=== PATIENT | male | born 1970 | race Caucasian/White ===

== ENCOUNTER 2020-11-28 15:31 | Inpatient (IN) ==
[2020-11-28] MEDS ORDERED: Dexamethasone 4 MG/ML VIAL IVP ONE (16:16)
[2020-11-28 17:13] LABS: Basophils % 0.3 %; Hematocrit 47.2 % (37.5-50.1); Hemoglobin 15.9 g/dL (12.9-16.9); Immature Granulocytes % 1.1 % (0-4); Lymphocytes # 0.6 K/mcL (0.6-4.6); Lymphocytes % 5.5 %; Mean Corpuscular HGB Conc 33.7 g/dL (31.6-35.5); Mean Corpuscular Hemoglobin 30.9 pg (28.0-33.3); Mean Corpuscular Volume 91.8 fL (83.0-100.0); Mean Platelet Volume 10.2 fL (9.4-12.4); Monocytes # 0.4 K/mcL (0.0-1.3); Monocytes % 3.7 %; Neutrophils # 9.6 K/mcL (1.6-8.9); Platelet Count 250 K/mcL (140-400); Red Blood Count 5.14 M/mcL (4.19-5.50); Red Cell Distribution Width 13.6 % (11.5-14.5); Segmented Neutrophils % 89.4 %; White Blood Count 10.7 K/mcL (4.3-11.1)
[2020-11-28 17:14] LABS: VBG HCO3 25 mEq/L (21-27); VBG PCO2 42 mmHg (41-51); VBG PH 7.38 pH Units (7.32-7.42); VBG PO2 50 mmHg (25-50)
[2020-11-28 17:49] LABS: BUN/Creatinine Ratio 15 (6-26); Blood Urea Nitrogen 14 mg/dL (6-20); Calcium 9.2 mg/dL (8.6-10.3); Carbon Dioxide 23 mEq/L (23-29); Chloride 105 mEq/L (98-107); Glucose 114 mg/dL (70-105); Osmolality,Calculated 287 (280-300); Sodium 138 mEq/L (136-145); Troponin I < 0.03 ng/mL (< 0.04); eGFR For African Americans > 60 (> 60); eGFR For Non-African Americans > 60 (> 60)
[2020-11-28] MEDS ORDERED: Azithromycin 500 MG in D5% in Water 250 ML IVPB ONE (18:52)
[2020-11-28] MEDS ORDERED: Naloxone 0.4 MG/ML INJ IVP PRN (21:42)
[2020-11-28] MEDS ORDERED: Ondansetron ODT 4 MG TAB.RAPDIS SL PRN (21:42)
[2020-11-28] MEDS: Doxycycline 100 MG in 0.9 % Sodium Chloride Mini Bag 100 ML IVPB SCH (23:10)
[2020-11-28] MEDS ORDERED: Famotidine 20 MG/2 ML VIAL IVP ONE (23:58)
[2020-11-28] MEDS ORDERED: GI Cocktail 40 ML EACH PO ONE (23:58)
[2020-11-29] MEDS: Acetaminophen 325 MG TABLET PO PRN ×4 (00:09→21:11)
[2020-11-29] MEDS: Melatonin 3 MG TABLET PO PRN ×2 (01:44→21:12)
[2020-11-29 05:54] LABS: Basophils % 0.3 %; Hematocrit 46.8 % (37.5-50.1); Hemoglobin 15.4 g/dL (12.9-16.9); Immature Granulocytes % 1.1 % (0-4); Lymphocytes # 0.8 K/mcL (0.6-4.6); Lymphocytes % 7.5 %; Mean Corpuscular HGB Conc 32.9 g/dL (31.6-35.5); Mean Corpuscular Hemoglobin 30.7 pg (28.0-33.3); Mean Corpuscular Volume 93.2 fL (83.0-100.0); Mean Platelet Volume 10.3 fL (9.4-12.4); Monocytes # 0.3 K/mcL (0.0-1.3); Monocytes % 3.2 %; Neutrophils # 9.2 K/mcL (1.6-8.9); Platelet Count 272 K/mcL (140-400); Red Blood Count 5.02 M/mcL (4.19-5.50); Red Cell Distribution Width 13.7 % (11.5-14.5); Segmented Neutrophils % 87.9 %; White Blood Count 10.5 K/mcL (4.3-11.1)
[2020-11-29] MEDS: *HR* Enoxaparin 40 MG/0.4 ML SYRINGE SQ SCH (05:55)
[2020-11-29 07:04] LABS: BUN/Creatinine Ratio 16 (6-26); Blood Urea Nitrogen 15 mg/dL (6-20); Carbon Dioxide 23 mEq/L (23-29); Chloride 104 mEq/L (98-107); Glucose 114 mg/dL (70-105); Osmolality,Calculated 288 (280-300); Potassium 4.4 mEq/L (3.5-5.1); Sodium 138 mEq/L (136-145); eGFR For African Americans > 60 (> 60); eGFR For Non-African Americans > 60 (> 60)
[2020-11-29] MEDS: Dexamethasone 4 MG/ML VIAL IVP SCH (08:16)
[2020-11-29] MEDS: Aspirin Enteric Coated 325 MG Tablet PO SCH (08:17)
[2020-11-29] MEDS: amLODIPine 5 MG TABLET PO SCH (08:17)
[2020-11-29] MEDS: Loratadine 10 MG TABLET PO SCH (08:17)
[2020-11-29] MEDS: Doxycycline 100 MG in 0.9 % Sodium Chloride Mini Bag 100 ML IVPB SCH ×2 (11:30→22:23)
[2020-11-29] MEDS: Ipratropium 1 PUFF INHALER IH SCH ×4 (11:37→23:46)
[2020-11-29] MEDS: Furosemide 40 MG/4 ML VIAL IVP SCH ×2 (12:54→20:00)
[2020-11-30] MEDS: Ipratropium 1 PUFF INHALER IH SCH ×6 (03:48→23:07)
[2020-11-30] MEDS: *HR* Enoxaparin 40 MG/0.4 ML SYRINGE SQ SCH (04:51)
[2020-11-30] MEDS: Acetaminophen 325 MG TABLET PO PRN ×3 (04:51→20:22)
[2020-11-30] MEDS: Aspirin Enteric Coated 325 MG Tablet PO SCH (08:43)
[2020-11-30] MEDS: Dexamethasone 4 MG/ML VIAL IVP SCH (08:44)
[2020-11-30] MEDS: Furosemide 40 MG/4 ML VIAL IVP SCH ×2 (08:44→20:22)
[2020-11-30] MEDS: amLODIPine 5 MG TABLET PO SCH (08:44)
[2020-11-30] MEDS: Loratadine 10 MG TABLET PO SCH (08:45)
[2020-11-30] MEDS: Doxycycline 100 MG in 0.9 % Sodium Chloride Mini Bag 100 ML IVPB SCH ×2 (10:56→23:36)
[2020-11-30 11:45] LABS: Basophils % 0.1 %; Hemoglobin 15.6 g/dL (12.9-16.9); Immature Granulocytes % 0.6 % (0-4); Lymphocytes % 5.4 %; Mean Corpuscular HGB Conc 33.2 g/dL (31.6-35.5); Mean Corpuscular Hemoglobin 31.1 pg (28.0-33.3); Mean Corpuscular Volume 93.6 fL (83.0-100.0); Mean Platelet Volume 10.2 fL (9.4-12.4); Monocytes % 5.7 %; Neutrophils # 15.8 K/mcL (1.6-8.9); Platelet Count 312 K/mcL (140-400); Red Blood Count 5.02 M/mcL (4.19-5.50); Red Cell Distribution Width 13.7 % (11.5-14.5); Segmented Neutrophils % 88.2 %
[2020-11-30 11:46] LABS: White Blood Count 17.9 K/mcL (4.3-11.1)
[2020-11-30 11:50] LABS: D-Dimer 847 ng/mLFEU (0-500)
[2020-11-30 11:52] LABS: Fibrinogen 740 mg/dL (169-393)
[2020-11-30 11:59] LABS: Blood Urea Nitrogen 24 mg/dL (6-20); Carbon Dioxide 23 mEq/L (23-29); Chloride 101 mEq/L (98-107); Potassium 3.9 mEq/L (3.5-5.1); Sodium 135 mEq/L (136-145)
[2020-11-30 12:00] LABS: BUN/Creatinine Ratio 23 (6-26); Calcium 8.9 mg/dL (8.6-10.3); Glucose 123 mg/dL (70-105); Magnesium 1.9 mg/dL (1.6-2.6); Osmolality,Calculated 285 (280-300); eGFR For African Americans > 60 (> 60); eGFR For Non-African Americans > 60 (> 60)
[2020-11-30] MEDS ORDERED: *HR* Heparin 5,000 UNIT/ML VIAL IVP ONE (12:38)
[2020-11-30] MEDS ORDERED: *HR* Heparin 5,000 UNIT/ML VIAL IVP PRN ×2 (12:38)
[2020-11-30] MEDS ORDERED: Heparin 25,000UNIT/250ML 1/2NS 25,000 UNIT/250 ML IV.SOLN IVC SCH (12:45)
[2020-11-30 13:24] LABS: Hematocrit 46.5 % (37.5-50.1); Hemoglobin 15.4 g/dL (12.9-16.9); Mean Corpuscular HGB Conc 33.1 g/dL (31.6-35.5); Mean Corpuscular Hemoglobin 30.1 pg (28.0-33.3); Platelet Count 324 K/mcL (140-400); Red Blood Count 5.11 M/mcL (4.19-5.50); Red Cell Distribution Width 13.8 % (11.5-14.5); White Blood Count 17.7 K/mcL (4.3-11.1)
[2020-11-30 13:26] LABS: Heparin anti-factor XA UFH 0.13 IU/mL (0.30-0.70); INR 1.1; Prothrombin Time 12.4 Seconds (9.4-12.1)
[2020-12-01 02:12] LABS: Basophils % 0.2 %; Hemoglobin 15.6 g/dL (12.9-16.9); Immature Granulocytes % 1.2 % (0-4); Lymphocytes # 1.1 K/mcL (0.6-4.6); Lymphocytes % 8.5 %; Mean Corpuscular HGB Conc 32.5 g/dL (31.6-35.5); Mean Corpuscular Hemoglobin 31.2 pg (28.0-33.3); Mean Platelet Volume 9.9 fL (9.4-12.4); Monocytes # 0.6 K/mcL (0.0-1.3); Monocytes % 4.8 %; Neutrophils # 11.1 K/mcL (1.6-8.9); Platelet Count 321 K/mcL (140-400); Red Cell Distribution Width 13.7 % (11.5-14.5); Segmented Neutrophils % 85.3 %
[2020-12-01 02:25] LABS: D-Dimer 601 ng/mLFEU (0-500)
[2020-12-01 02:27] LABS: Fibrinogen 716 mg/dL (169-393)
[2020-12-01 02:29] LABS: BUN/Creatinine Ratio 27 (6-26); Blood Urea Nitrogen 30 mg/dL (6-20); Calcium 8.8 mg/dL (8.6-10.3); Carbon Dioxide 25 mEq/L (23-29); Chloride 100 mEq/L (98-107); Glucose 127 mg/dL (70-105); Magnesium 2.1 mg/dL (1.6-2.6); Osmolality,Calculated 294 (280-300); Potassium 3.7 mEq/L (3.5-5.1); Sodium 138 mEq/L (136-145); eGFR For African Americans > 60 (> 60); eGFR For Non-African Americans > 60 (> 60)
[2020-12-01] MEDS: Ipratropium 1 PUFF INHALER IH SCH ×6 (03:51→23:01)
[2020-12-01] MEDS: amLODIPine 5 MG TABLET PO SCH (08:05)
[2020-12-01] MEDS: Loratadine 10 MG TABLET PO SCH (08:06)
[2020-12-01] MEDS: Furosemide 40 MG/4 ML VIAL IVP SCH (08:06)
[2020-12-01] MEDS: Dexamethasone 4 MG/ML VIAL IVP SCH ×2 (08:06→08:39)
[2020-12-01] MEDS ORDERED: Pantoprazole 40 MG VIAL IVP SCH (09:00)
[2020-12-01] MEDS: Doxycycline 100 MG in 0.9 % Sodium Chloride Mini Bag 100 ML IVPB SCH (11:06)
[2020-12-01] MEDS: Acetaminophen 325 MG TABLET PO PRN ×3 (11:06→21:52)
[2020-12-01] MEDS: Doxycycline 100 MG CAPSULE PO SCH (20:17)
[2020-12-02] MEDS: Ipratropium 1 PUFF INHALER IH SCH ×3 (03:39→11:37)
[2020-12-02 07:02] VITALS: BP 130/73
[2020-12-02] MEDS: Loratadine 10 MG TABLET PO SCH (09:20)
[2020-12-02] MEDS: Doxycycline 100 MG CAPSULE PO SCH (09:20)
[2020-12-02] MEDS: Dexamethasone 4 MG/ML VIAL IVP SCH (09:20)
[2020-12-02] MEDS: amLODIPine 5 MG TABLET PO SCH (09:24)
[2020-12-02] MEDS: Acetaminophen 325 MG TABLET PO PRN (09:38)
[2020-12-03] MEDS ORDERED: *HR* Enoxaparin 40 MG/0.4 ML SYRINGE SQ SCH (06:00)
== END 2020-12-02 12:15 | disposition home or self-care (01) | DRG 871 ==
LOC: 2NENU 15:31 → EMEROOARM 15:31 → SUATTDRO 19:50 → 2NENU 22:00
PROVIDERS: ADMIT Internal Medicine; ATTEND Pharmacist